=== PATIENT | male | born 1960 | race Hispanic/Latino ===

== ENCOUNTER 2018-05-22 16:43 | Emergency (ER) | payer OTHER ==
[~2018-05-22] VITALS: Ht 177.8 cm; Wt 81.6 kg
[2018-05-22] MEDS ORDERED: ACETAMINOPHEN/CODEINE 300MG - 30MG TAB PO NR ×2 (17:00→20:30)
--- NOTE | 2018-05-22 18:22 | Diagnostic Imaging Report ---
EXAMINATION: Head and cervical spine CT without contrast. HISTORY: Status post fall from 8 feet ladder, head trauma, hit head, head and neck pain, near syncope. COMPARISON: None. TECHNIQUE: Multidetector axial images were obtained without contrast from the foramen magnum to the vertex and through the cervical spine. The images were reconstructed using brain and bone algorithms. Thin section brain images were reformatted into coronal and sagittal planes. Dose modulation, iterative reconstruction, and/or weight based adjustment of the mA/kV was utilized to reduce the radiation dose to as low as reasonably achievable. HEAD CT FINDINGS: Skull: No lytic or blastic lesions. No fractures. Parenchyma: Normal. No mass, hemorrhage or CT evidence of acute vascular insult. Brain volume: Normal for age. Ventricles: No hydrocephalus or displacement. Arteries: No density suggestive of thrombus. Dural sinuses: No abnormal density. Extra-axial spaces: No abnormal density. Foramen magnum: No mass, Chiari malformation, or basilar invagination. Sella: No obvious mass. Paranasal/mastoid sinuses: Imaged portions unremarkable. CERVICAL SPINE CT FINDINGS: Alignment:Normal alignment and lordosis. Soft tissues: Normal. Vertebrae: Normal height and density. No acute fracture, infection or neoplasm. Degenerative changes: Prominent uncovertebral and facet arthrosis on the left at C3-C4 results in severe left foraminal stenosis. Otherwise there are no significant degenerative changes, spinal canal or foraminal stenosis. IMPRESSION: Head CT: No intracranial abnormalities, particularly no posttraumatic hemorrhage or skull fractures. Cervical spine CT: 1. No acute fractures or dislocations. 2. 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 Note: Acute post traumatic spinal cord, vascular or ligamentous injury cannot adequately be assessed with CT. Signed by: Dr. Mayra Malcolm M.D. on 05/22/2018 6:18 PM
--- NOTE | 2018-05-22 18:43 | Diagnostic Imaging Report ---
Shoulder right limited CPT code: 42394 Indication: Fall. Technique: AP and Y-view of right shoulder obtained without comparison. Findings: There is no current dislocation. No evidence of fracture involving humeral head. Visualized proximal shaft is intact. The clavicle is intact. The acromioclavicular joint is properly aligned. No fracture evident involving the visualized portion of the scapula. Portions are overlapped by lateral ribs on all images however. The visualized ribs are intact. IMPRESSION: No evidence of acute fracture or dislocation involving the shoulder. Signed by: Dr. Abel Monsalve MD on 05/22/2018 6:39 PM
--- NOTE | 2018-05-22 19:29 | Diagnostic Imaging Report ---
Lumbar spine complete CPT code: 52187 Indication: Fall from ladder Technique: A.P., lateral and bilateral oblique views of the lumbar spine obtained. Comparison: None. Findings: There are five non rib bearing vertebral bodies. There is partial sacralization of L5 on the right. Alignment is maintained on the AP and lateral views. The transverse processes are intact. There is trace, age indeterminate wedging of the L1 vertebral body without associated disc space narrowing. No significant degenerative changes elsewhere in the spine. The facet joints and pedicles are normal. No abnormalities of the sacroiliac joints. The sacrum is normal. The spinous processes are normally aligned. There is no evidence of subluxation. The bowel gas pattern is unremarkable. IMPRESSION: 1. Minimal wedging of the L1 vertebral body of indeterminate age. No subluxation. 2. No significant degenerative changes. Signed by: Dr. Abel Monsalve MD on 05/22/2018 7:26 PM
--- NOTE | 2018-05-22 19:31 | Diagnostic Imaging Report ---
Thoracic spine complete CPT code: 40933 Indication: Fall Technique: A.P. and lateral views of thoracic spine obtained Comparison: Lumbar spine x-rays obtained at the same time. Findings: Swimmer's view is suboptimal. Alignment maintained on AP view. No vertebral body compression. No compression or subluxation suggested on lateral views. Cervicothoracic junction is not well demonstrated due to overlapping soft tissue and osseous structures. There is minimal wedging of the L1 vertebral body similar to that on lumbar spine series without associated degenerative changes. Visualized lung flores are clear. IMPRESSION: 1. No gross abnormalities appreciated involving thoracic spine. 2. Minimal wedging of the L1 vertebral body of indeterminate age. Signed by: Dr. Abel Monsalve MD on 05/22/2018 7:27 PM
[2018-05-22] MEDS ORDERED: ACETAMINOPHEN/CODEINE 300MG - 30MG TAB ONE (20:30)
[2018-05-23 04:26] VITALS: BP 136/73
== END 2018-05-22 20:34 | disposition home or self-care (01) ==
LOC: EDBD 16:43 → ER 16:43
DX: S00.83XA Contusion of other part of head, initial encounter (principal); S00.01XA Abrasion of scalp, initial encounter; S40.211A Abrasion of right shoulder, initial encounter; S30.0XXA Contusion of lower back and pelvis, initial encounter; S30.810A Abrasion of lower back and pelvis, initial encounter; W11.XXXA Fall on and from ladder, initial encounter; Y92.008 Other place in unspecified non-institutional (private) residence as the place of occurrence of the external cause; E11.9 Type 2 diabetes mellitus without complications
CPT/HCPCS: 70450; 72070; 72110; 72125